=== PATIENT | female | born 1935 | race Caucasian/White ===

== ENCOUNTER → 2022-08-14 | Outpatient (CLI) | payer MEDICARE ==
[~2022-08-14] MED LIST: AMLODIPINE BESYL5 MG PO; ATORVASTATIN CA80 MG PO; BUSPIRONE HCL15 MG PO; HYDROCODON-ACE1 EAC2 PO; IBUPROFEN800 MG PO; LOPRESSOR50 MG PO; LOW DOSE ASPIRI81 MG PO; MAGNESIUM400 MG PO; MULTI-VITAMIN1 EACH PO; PROAIR HFA8.5 GM INH; PROTONIX40 MG PO; PROZAC20 MG PO; SLEEP AID25 M1 PO; VITAMIN B COMP1 EACH PO; VITAMIN D325 MC6 PO; WIXELA 250-501 EACH INH
[2022-08-14 13:46] LABS: HEMOGLOBIN 14.2 gm/dl (12.3-15.3); RED BLOOD COUNT 4.41 M/UL (4.00-5.10); WHITE BLOOD COUNT 6.8 K/UL (4.5-11.0)
[2022-08-14 14:04] LABS: BUN/CREATININE RATIO 23 (0-10)
== END ==
LOC: OPSV2 12:09
PROVIDERS: Orthopaedic Surgery
DX: Z01.818 Encounter for other preprocedural examination (principal); M48.54XA Collapsed vertebra, not elsewhere classified, thoracic region, initial encounter for fracture
CPT/HCPCS: 71046; 80048; 85027; 93005

== ENCOUNTER → 2022-08-16 | Day surgery (SDC) | payer MEDICARE | END | disposition home or self-care (01) | LOC: OR 07:56 | DX: S52.501A Unspecified fracture of the lower end of right radius, initial encounter for closed fracture (principal); T84.498A Other mechanical complication of other internal orthopedic devices, implants and grafts, initial encounter; I10 Essential (primary) hypertension; J44.9 Chronic obstructive pulmonary disease, unspecified; Y79.2 Prosthetic and other implants, materials and accessory orthopedic devices associated with adverse incidents; Y83.8 Other surgical procedures as the cause of abnormal reaction of the patient, or of later complication, without mention of misadventure at the time of the procedure; W01.0XXA Fall on same level from slipping, tripping and stumbling without subsequent striking against object, initial encounter; Z88.5 Allergy status to narcotic agent; Z79.82 Long term (current) use of aspirin | CPT/HCPCS: 73110; 76000; C1713; J0171; J0360; J0690; J1100; J2001; J2405; J2704; J2795; J3010 ==